=== PATIENT | female | born 1975 | race Caucasian/White ===

== ENCOUNTER 2022-03-01 08:15 | Emergency (ER) | payer BC ==
[2022-03-01] MEDS ORDERED: SODIUM CHLORIDE 0.9% 1,000 ML IV STA ×2 (08:18→12:10)
[2022-03-01] MEDS ORDERED: ONDANSETRON 4 MG/2 ML VIAL IVP STA (08:33)
[2022-03-01] MEDS ORDERED: LACTATED RINGERS 1,000 ML IV STA (08:33)
--- NOTE | 2022-03-01 08:34 | ED Physician Documentation ---
PD HPI NVD - Stated complaint Stated Complaint: C+/COUGH - History obtained from History obtained from: Patient - Additonal information Additional information: 46-year-old woman with history of asthma. Recently dealing with COVID and was on Paxil bed finishing Sunday. She has been vomiting without diarrhea or stomach pain for the last 36 hours. She tried oral Zofran which was not helpful. She is allergic to most other antiemetics including Compazine and Phenergan. No fevers. Review of Systems Ten Systems: 10 systems reviewed and negative Constitutional: reports: Sweats GI: denies: Abdominal Pain, Diarrhea PD PAST MEDICAL HISTORY - Present Medications Home Medications: Ambulatory Orders Medication Instructions Recorded Confirmed Promethazine [Phenergan] 0.5 tab PO Q6H PRN #15 tablet 03/01/22 - Allergies Allergies/Adverse Reactions: Allergies Allergy/AdvReac Type Severity Reaction Status Date / Time erythromycin base Allergy Respiratory Verified 03/01/22 08:35 hydrocodone Allergy Anaphylaxis Verified 03/01/22 08:35 prochlorperazine Allergy Hallucinati Verified 03/01/22 08:35 [From Compazine] ons promethazine Allergy Hallucinati Verified 03/01/22 08:36 ons Sulfa (Sulfonamide Allergy Hives Verified 03/01/22 08:36 Antibiotics) PD ED PE NORMAL - Vitals Vital signs reviewed: Yes - General General: Alert and oriented X 3, Other (Uncomfortable and retching) - Neck Neck: Supple, no meningeal sign, No bony TTP - Respiratory Respiratory: Other (Mild resting tachycardia) - Abdomen Abdomen: Normal bowel sounds, Soft, Non tender - Neuro Neuro: Alert and oriented X 3, Normal speech Results - Vitals Vitals: Vital Signs - 24 hr 03/01/22 03/01/22 03/01/22 08:31 08:47 10:34 Temperature 37.0 C 36.7 C Heart Rate 106 H 88 81 Respiratory 16 16 18 Rate Blood Pressure 130/99 H 130/99 H 142/86 H O2 Saturation 99 100 98 03/01/22 03/01/22 12:00 14:00 Temperature 36.3 C L 36.6 C Heart Rate 81 80 Respiratory 18 15 Rate Blood Pressure 136/82 H 132/78 H O2 Saturation 100 99 Oxygen O2 Source Room air - Labs Labs: Laboratory Tests 03/01/22 08:40 Sodium 137 Potassium 3.8 Chloride 100 L Carbon Dioxide 27 Anion Gap 10.0 BUN 12 Creatinine 0.8 Estimated GFR (MDRD) 77 L Glucose 100 Calcium 9.5 Magnesium 2.4 Serum Ketones NEGATIVE PD MEDICAL DECISION MAKING - ED course ED course: 46yo with 36 hrs vomiting starting a couple of days after finishing paxlovid for covid. Assoc with [facility], but mild gradual onset headache that started well after the vomiting. No other sx. Benign exam. Given 2L IVF and zofran and was doing well but relapsed with vomiting and feeling better after 6.25mg phenergan IV. Not hx of "allergy" to phenergan with side effect of hypotension, but did fine with the tiny dose. Departure - Departure Disposition: 01 Home, Self Care Clinical Impression: Vomiting Qualifiers: Vomiting type: unspecified Nausea presence: with nausea Qualified Code(s): R11.2 - Nausea with vomiting, unspecified Condition: Good Record reviewed to determine appropriate education?: Yes Instructions: ED Nausea Vomiting Prescriptions: Promethazine [Phenergan] 0.5 tab PO Q6H PRN #15 tablet PRN Reason: Nausea / Vomiting Comments: I sent your prescription electronically to [facility] in [place]. Return in 24 hours if not better, anytime if worse. Follow-up with your primary care physician, next available appointment. Do not drink or drive while taking Phenergan. Discharge Date/Time: 03/01/22 14:12
[2022-03-01] MEDS ORDERED: ACETAMINOPHEN 1,000 MG/100 ML 100 ML IV ONE (08:48)
[2022-03-01 09:11] LABS: BUN - BLOOD UREA NITROGEN 12 mg/dL (6-20); CALCIUM 9.5 mg/dL (8.5-10.3); CARBON DIOXIDE - CO2 27 mmol/L (21-32); CHLORIDE 100 mmol/L (101-111); CREATININE 0.8 mg/dL (0.4-1.0); GFR - MDRD 77 (>89); GLUCOSE 100 mg/dL (70-100); MAGNESIUM 2.4 mg/dL (1.7-2.8); POTASSIUM 3.8 mmol/L (3.5-5.0); SODIUM 137 mmol/L (135-145)
[2022-03-01 09:24] LABS: KETONES, SERUM (ACETEST) NEGATIVE (NEGATIVE)
[2022-03-01] MEDS ORDERED: PROMETHAZINE INJ 6.25 MG in SODIUM CHLORIDE 0.9% 50 ML IV STA (12:10)
[2022-03-01 14:11] VITALS: BP 132/78
== END 2022-03-01 14:12 | disposition home or self-care (01) ==
LOC: ED 08:15
DX: R11.2 Nausea with vomiting, unspecified (principal)
CPT/HCPCS: 36415; 80048; 82009; 83735; 96365; 96367; 96375; 99282; 99284; J0131; J7040; J7120

== ENCOUNTER 2022-11-02 10:53 | Emergency (ER) | payer BC ==
[2022-11-02 11:23] LABS: BASOPHILS % (AUTO) 0.3 %; EOSINOPHILS % (AUTO) 0.3 %; HCT - HEMATOCRIT 42.4 % (37.0-47.0); HGB - HEMOGLOBIN 14.5 g/dL (12.0-16.0); LYMPHOCYTES # (AUTO) 1.1 10^3/uL (1.5-3.5); LYMPHOCYTES % (AUTO) 17.4 %; MEAN CORPUSCULAR HEMOGLOBIN 30.2 pg (27.0-31.0); MEAN CORPUSCULAR HGB CONC 34.2 g/dL (32.0-36.0); MEAN CORPUSCULAR VOLUME 88.3 fL (81.0-99.0); MEAN PLATELET VOLUME 10.3 fL (7.9-10.8); MONOCYTES # (AUTO) 0.4 10^3/uL (0.0-1.0); MONOCYTES % (AUTO) 5.8 %; NEUTROPHILS # (AUTO) 4.7 10^3/uL (1.5-6.6); NEUTROPHILS % (AUTO) 75.9 %; PLT - PLATELET COUNT 211 10^3/uL (130-450); RED CELL DISTRIBUTION WIDTH 11.5 % (12.0-15.0); WHITE BLOOD COUNT 6.2 x10^3/uL (4.8-10.8)
[2022-11-02] MEDS ORDERED: diphenhydrAMINE INJ 50 MG/ML VIAL IVP STA (11:27)
[2022-11-02] MEDS ORDERED: SODIUM CHLORIDE 0.9% 1,000 ML IV STA (11:27)
[2022-11-02] MEDS ORDERED: DROPERIDOL 5 MG/2 ML VIAL IVP STA (11:27)
[2022-11-02 11:35] LABS: ALBUMIN 4.4 g/dL (3.2-5.5); ALBUMIN/GLOBULIN RATIO 1.5 (1.0-2.2); BILIRUBIN,TOTAL 0.9 mg/dL (0.2-1.0); CALCIUM 9.2 mg/dL (8.5-10.3); CREATININE 0.7 mg/dL (0.4-1.0); POTASSIUM 3.7 mmol/L (3.5-5.0); TOTAL PROTEIN 7.3 g/dL (6.7-8.2)
--- NOTE | 2022-11-02 12:58 | ED Physician Documentation ---
PD HPI NVD - Stated complaint Stated Complaint: NAUSEA/VOMITING - Chief complaint Chief Complaint: Abd Pain - History obtained from History obtained from: Patient - History of Present Illness Timing - onset: How many days ago (2) Timing - duration: Days (2) Timing - details: Abrupt onset, Still present Improved by: Vomiting Similar symptoms before: Diagnosis (gastroenteritis) Recently seen: Not recently seen - Additonal information Additional information: 47-year-old Holley Guerrero has developed nausea and vomiting 2 days ago and she has had nonstop retching. She has had this happen to her previously about once per year. Usually it when this happens she is not amenable to Zofran. She has had improvement with Phenergan previously. She denies a history of cyclical vomiting. She believes this is a gastroenteritis something that one of her kids has brought to her. She feels dehydrated, has a headache and feels she needs hydration. Review of Systems Constitutional: denies: Fever Eyes: denies: Decreased vision Ears: denies: Ear pain Nose: denies: Rhinorrhea / runny nose, Congestion Throat: denies: Sore throat Cardiac: denies: Chest pain / pressure, Palpitations Respiratory: denies: Dyspnea, Cough GI: reports: Nausea, Vomiting. denies: Abdominal Pain : denies: Dysuria, Frequency Skin: denies: Rash, Lesions Musculoskeletal: denies: Neck pain, Back pain, Extremity pain Neurologic: reports: Generalized weakness, Headache. denies: Focal weakness, Numbness, Confused, Altered mental status, Head injury, LOC PD PAST MEDICAL HISTORY - Present Medications Home Medications: Ambulatory Orders Medication Instructions Recorded Confirmed Promethazine [Phenergan] 0.5 tab PO Q6H PRN #15 tablet 03/01/22 Promethazine [Phenergan] 12.5 - 25 mg PO Q6H PRN #10 tab 11/02/22 - Allergies Allergies/Adverse Reactions: Allergies Allergy/AdvReac Type Severity Reaction Status Date / Time erythromycin base Allergy Respiratory Verified 11/02/22 11:08 hydrocodone Allergy Anaphylaxis Verified 11/02/22 11:08 prochlorperazine Allergy Hallucinati Verified 11/02/22 11:08 [From Compazine] ons promethazine Allergy Hallucinati Verified 11/02/22 11:08 ons Sulfa (Sulfonamide Allergy Hives Verified 11/02/22 11:08 Antibiotics) PD ED PE NORMAL - Vitals Vital signs reviewed: Yes (tachy and hypertensive ) - General General: Alert and oriented X 3, No acute distress, Well developed/nourished - HEENT HEENT: Atraumatic, PERRL, EOMI - Neck Neck: Supple, no meningeal sign, No bony TTP - Cardiac Cardiac: No murmur, Other (tachy to 110) - Respiratory Respiratory: No respiratory distress, Clear bilaterally - Abdomen Abdomen: Normal bowel sounds, Soft, Non tender, Non distended, No organomegaly - Back Back: No CVA TTP, No spinal TTP - Derm Derm: Normal color, Warm and dry, No rash - Extremities Extremities: No deformity, No edema - Neuro Neuro: Alert and oriented X 3, hall monitor 2-12 intact, No motor deficit, No sensory deficit, Normal speech Eye Opening: Spontaneous Motor: Obeys Commands Verbal: Oriented GCS Score: 15 - Psych Psych: Normal mood, Normal affect Results - Vitals Vitals: Vital Signs - 24 hr 11/02/22 11/02/22 11:02 13:12 Temperature 35.6 C L 36.4 C L Heart Rate 117 H 87 Respiratory 22 18 Rate Blood Pressure 122/90 H 116/75 O2 Saturation 100 97 Oxygen O2 Source Room air - Labs Labs: Laboratory Tests 11/02/22 11/02/22 11:19 11:19 WBC 6.2 RBC 4.80 Hgb 14.5 Hct 42.4 MCV 88.3 MCH 30.2 MCHC 34.2 RDW 11.5 L Plt Count 211 MPV 10.3 Neut # (Auto) 4.7 Lymph # (Auto) 1.1 L [place] # (Auto) 0.4 Eos # (Auto) 0.0 Baso # (Auto) 0.0 Absolute Nucleated RBC 0.00 Nucleated RBC % 0.0 Sodium 139 Potassium 3.7 Chloride 104 Carbon Dioxide 24 Anion Gap 11.0 BUN 13 Creatinine 0.7 Estimated GFR (MDRD) 89 Glucose 104 H Calcium 9.2 Total Bilirubin 0.9 AST 18 ALT 18 Alkaline Phosphatase 45 Total Protein 7.3 Albumin 4.4 Globulin 2.9 Albumin/Globulin Ratio 1.5 Lipase 36 PD Medical Decision Making - ED course Complexity details: reviewed old records, reviewed results, re-evaluated patient, considered differential, d/w patient Reviewed Lab Results: We reviewed a complete blood count and chemistries with electrolytes and kidney and liver function. All of the studies were normal. ED course: 47-year-old female with acute gastroenteritis not responding to Zofran is ad ministered Inapsine and Benadryl with improvement in her nausea resolution of her vomiting and she is administered intravenous saline. She feels improved at the time of discharge. Departure - Departure Disposition: 01 Home, Self Care Clinical Impression: Gastroenteritis Instructions: ED Gastroenteritis Vs Food Poison Follow-Up: Wendy Flores MD [Primary Care Provider] - Prescriptions: Promethazine [Phenergan] 12.5 - 25 mg PO Q6H PRN #10 tab PRN Reason: Nausea / Vomiting Discharge Date/Time: 11/02/22 13:26
[2022-11-02 13:13] VITALS: BP 116/75
== END 2022-11-02 13:26 | disposition home or self-care (01) ==
LOC: ED 10:53
DX: K52.9 Noninfective gastroenteritis and colitis, unspecified (principal)
CPT/HCPCS: 36415; 80053; 83690; 85025; 96374; 99283; J1200